=== PATIENT | male | born 1950 | race African-American/Black ===

== ENCOUNTER 2020-05-26 08:31 | Day surgery (SDC) | payer OTHER ==
--- OUTSIDE RECORDS SUMMARY | 2020-05-26 08:35 | XMS REPORT | Clinical Summary ---
:1950 Author Organization [facility] Address [address] [place] [address] Care Team Providers Name Role Phone Selena Lei MD Primary Care Provider Allergies No Known Active Allergies Medications Medication Sig Dispensed Refills Start Date End Date Status magnesium Take 400 mg by 0 Activ e oxide,aspartate,c mouth 2 (two) itr 400 mg times a day. magnesium capsule turmeric root Take 1 capsule 0 A ctive extract 500 mg by mouth 2 capsule (two) times a day. meloxicam (MOBIC) TAKE 1 TABLET 90 tablet 0 06/17/2019 Active 15 mg tablet BY MOUTH DAILY WITH FOOD NEEDED valACYclovir Take 1 tablet 30 tablet 0 10/25/2019 Ac tive (Valtrex) 500 MG (500 mg total) tabletIndications by mouth 2 : Recurrent (two) times a herpes simplex day. Take for 3 days prn outbreaks cholecalciferol, Take 1 tablet 0 Active vitamin D3, by mouth (Vitamin D3) 125 daily. mcg (5,000 unit) tablet ferrous sulfate Take 325 mg by 0 Active 325 (65 FE) MG mouth daily tablet with breakfast. multivit-min/FA/l Take 1 tablet 0 Active ycopen/lutein by mouth (CENTRUM SILVER daily. MEN ORAL) cyanocobalamin, Take 1 tablet 0 Active vitamin B-12, by mouth (VITAMIN B-12 daily. ORAL) TESTOSTERONE Take 4 tablets 0 Ac tive UNDECANOATE ORAL by mouth 2 (two) times a week. rosuvastatin TAKE 1 30 tablet 10 02/08/2020 Active (CRESTOR) 10 mg TABLET(10 MG) tablet BY MOUTH DAILY olmesartan-amLODI Take 1 tablet 30 tablet 3 04/19/2020 Active Pin-hcthiazid by mouth 40-5-25 mg daily. tabletIndications : Essential hypertension losartan (COZAAR) Take 1 tablet 90 tablet 0 05/04/2019 02 Discontinued 100 MG tablet (100 mg total) 0 by mouth daily. aspirin (ECOTRIN) Take 81 mg by 0 12/30/19 2 Discontinued 81 MG enteric mouth nightly. 0 ( Reorder) coated tablet meloxicam (MOBIC) Take one 30 tablet 1 06/17/2019 D iscontinued 15 mg tablet tablet by 0 mouth daily as needed with food. losartan (COZAAR) TAKE 1 90 tablet 0 07/26/2019 D iscontinued 100 MG tablet TABLET(100 MG) 0 BY MOUTH DAILY losartan (COZAAR) TAKE 1 90 tablet 0 10/07/2019 D iscontinued 100 MG tablet TABLET(100 MG) 0 BY MOUTH DAILY rosuvastatin Take 1 tablet 30 tablet 3 10/27/2019 Di scontinued (Crestor) 10 mg (10 mg total) 0 tablet by mouth daily. ticagrelor Take 1 tablet 180 tablet 3 12/30/2019 Exp ired (BRILINTA) 90 mg (90 mg total) 0 tablet by mouth 2 (two) times a day for 90 days. aspirin (ECOTRIN) Take 1 tablet 90 tablet 3 12/30/2019 02 81 MG enteric (81 mg total) 0 coated tablet by mouth nightly for 90 doses. losartan (COZAAR) TAKE 1 90 tablet 0 01/12/2020 D iscontinued 100 MG tablet TABLET(100 MG) 0 ( Dose BY MOUTH DAILY adjus tment) losartan-hydrochl Take 1 tablet 30 tablet 3 01/18/2020 02 Discontinued orothiazide by mouth 0 (Dose (HYZAAR) 100-25 daily. adju stment) mg per tabletIndications : Essential hypertension Active Problems Problem Noted Date History of coronary artery stent placement 12/14/2019 Stented coronary artery 06/08/2019 Abnormal stress test 05/04/2019 Hyperlipidemia 05/04/2019 Essential hypertension 05/04/2019 CAD in [place] artery 05/04/2019 SOB (shortness of breath) 05/04/2019 Encounters Date Type Specialty Care Team Description 05/24/2020 Telephone Cardiology Jaspal Ramírez MA Medication Que stion (Brilinta&Aspir in ) 04/19/2020 Office Visit Family Medicine Quique, Essential hy pertension Nadine (Primary Dx) MD Selena 04/19/2020 Travel 02/08/2020 Refill Family Nadine Gaming MD 01/18/2020 Office Visit Cardiology Sergio Vale, CAD in jethro ve artery (Primary Dx); Stented coronar y artery 01/18/2020 Lab Lab [facility], Prostate cancer screening; Nadine Essential hyper tension; MD Selena Left leg parest hesias; Impaired fastin g glucose; Vitamin D defic iency 01/18/2020 Office Visit Family Medicine Quique, Annual visit for general adult medical examination with abnormal findings (Primary Dx); Nadine Prostate cancer screening; MD Selena Essential hyper tension; Coronary artery disease involving e[place] coronary artery of [place] heart without angina pectoris; Recurrent herpe s simplex; Pure hyperchole sterolemia; Left leg parest hesias; Impaired fastin g glucose; Vitamin D defic iency 01/18/2020 Travel 01/11/2020 Refill Cardiology Sergio Vale, Med Refill 12/29/2019 Surgery Procedural Sergio Vale, PCI stent [ [id number] Cardiology (CPT)] 12/29/2019 - Hospital Cardiology Sergio Vale, CAD in jeth[place] ve artery 12/30/2019 Encounter 12/29/2019 Travel 12/28/2019 Travel 12/25/2019 Lab Lab Sergio Vale, Exposure to SARS-associated coronavirus; CAD in [place] a rtery; Hyperlipidemia, unspecified hyperlipidemia type 12/24/2019 Travel 12/14/2019 Office Visit Cardiology Sergio Vale, CAD in jethro ve artery (Primary Dx); History of charles nary artery stent placement; Pure hyperchole sterolemia; Exposure to WILFREDO S-associated coronavirus 12/14/2019 Orders Only Cardiology Jaspal Ramírez MA CAD in [place] artery (Primary Dx) 12/14/2019 Travel 10/27/2019 Refill Family Medicine Nadine Lei MD 10/25/2019 Office Visit Family Medicine [facility] Essential hy pertension (Primary Dx); Nadine Coronary artery disease involving ekl[place]na coronary artery of [place] heart without angina pectoris; MD Selena Recurrent herpe s simplex 10/25/2019 Travel 10/21/2019 Travel 10/07/2019 Refill Cardiology Sergio Vale Med Refill 07/23/2019 Refill Cardiology Sergio Vale Med Refill 06/17/2019 Refill Family Medicine Nadine Lei MD 06/17/2019 Refill Family Medicine Nadine Lei MD 06/15/2019 Office Visit Family Medicine [facility], Pain of both Nadine sacroiliac join ts MD Selena (Primary Dx) 06/08/2019 Office Visit Cardiology Sergio Vale, CAD in jethro ve artery (Primary Dx); Hyperlipidemia, unspecified hyperlipidemia type; Stented coronar y artery after 05/26/2019 Immunizations Name Administration Dates Next Due FLUZONE HIGH-DOSE PF 03/09/2020 Pneumococcal Conjugate 13-Valent 08/18/2018 Pneumococcal Polysaccharide 03/09/2020 Tdap 08/18/2018 Zoster Vaccine Recombinant 10/21/2018, 08/18/2018 Surgical History Surgery Date Site/Laterality Comments CARDIAC CATHETERIZATION 05/06/2019 N/A Procedur e: Selective coronary angiogr aphy; Surgeon: Lizy Vale MD; Locatio n: [facility] Legal Nurse Consultant [facility] Location; Servi ce: Cardiology; Lat erality: N/A; CORONARY STENT PLACEMENT 05/19/2003 - Dr Vale 05/18/2004 CARDIAC CATHETERIZATION 12/29/2019 N/A Procedur e: PCI stent; Surgeon: Lizy Vale MD; Locatio n: 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 Never 05/06/2019 How many drinks containing alcohol do you have on a typical Not asked day when you are drinking? How often do you have six or more drinks on one occasion? No t asked Sex Assigned at Date Recorded Not on file Job Start Date Occupation Industry Not on file Not on file Not on file Last Filed Vital Signs Vital Sign Reading Time Taken Comments Blood Pressure 133/90 04/19/2020 8:06 AM FRUIT CUTTER Pulse 63 04/19/2020 8:06 AM FRUIT CUTTER Temperature 36.7 C (98.1 F) 04/19/2020 8:06 AM FRUIT CUTTER Respiratory Rate 17 12/30/2019 7:00 AM CDT Oxygen Saturation 99% 04/19/2020 8:06 AM FRUIT CUTTER Inhaled Oxygen Concentration - - Weight 91.6 kg (202 lb) 04/19/2020 8:06 AM FRUIT CUTTER Height 172.7 cm (5' 8") 04/19/2020 8:06 AM FRUIT CUTTER Body Mass Index 30.71 04/19/2020 8:06 AM FRUIT CUTTER Plan of Treatment Date Type Specialty Care Team Description 07/18/2020 Office Visit Family Medicine Anay Lei MD [address] [facility] [address] [place], [place] [address] [phone] 07/18/2020 Office Visit Cardiology Sergio Vale MD [address] [facility] [address] [place], [place] [address] [phone] Health Maintenance Due Date Last Done Comments COVID-19 VACCINE (#1) 1968 COLONOSCOPY SCREENING 2002 SHINGLES VACCINES Completed 10/21/2018, 08/18/2018 65+ PNEUMOCOCCAL VACCINE Completed 03/09/2020, 08/18/2018 INFLUENZA VACCINE Completed 03/09/2020 Implants Implanted Type Area Precision Grinder External Device Shelf Model / Identifier Expiration Serial / Date Lot Stent System 3.0 X 38mm Resolute [employer] Coronary - [id number] Coronary N/A: N/A [facility] - [id number] / Implanted: 12/29/2019 at [facility] (Quantity not on file) Terry nts CARDIAC RYHTYM / MGMT Stent System 3.0 X 38mm Resolute [employer] Coronary - [id number] Coronary N/A: N/A [employer] [place] - [id number] / Implanted: 12/29/2019 at [facility] (Quantity not on file) Terry nts CARDIAC RYHTYM / MGMT Stent System 2.50 X 26mm Resolute [employer] Coronary - [id number] Coronary N/A: N/A [employer] [place] - [id number] / Implanted: 12/29/2019 at [facility] (Quantity not on file) Terry nts CARDIAC RYHTYM / MGMT System Clsr Sut Meditd 6fr Perclose Proglide - [id number] Surgic al N/A: N/A [facility] 09/15/2021 [id number] / Implanted: 12/29/2019 at [facility] (Quantity not on file) Implan ts; DEVICES / Expanders; [id number] Extenders; Surgical Wires System Clsr Sut Meditd 6fr Perclose Proglide - [id number] Surgic al N/A: N/A [facility] 09/15/2021 [id number] / Implanted: 12/29/2019 at [facility] (Quantity not on file) Implan ts; DEVICES / Expanders; [id number] Extenders; Surgical Wires Procedures Procedure Name Priority Date/Time Associated Diagnosis Comme nts VITAMIN D 25 HYDROXY Routine 01/18/2020 9:23 Vitamin D defici ency Results for this LEVEL AM CDT procedure are i n the results section. BASIC METABOLIC PANEL Routine 01/18/2020 9:23 Essential Re sults for this AM CDT hypertension procedure are in Impaired fasting the results glucose section. HEMOGLOBIN A1C Routine 01/18/2020 9:23 Impaired fasting Resul ts for this AM CDT glucose procedure are i n the results section. THYROID STIMULATING Routine 01/18/2020 9:23 Left leg paresthe stephanie Results for this HORMONE AM CDT procedure are i n the results section. VITAMIN B12 LEVEL Routine 01/18/2020 9:23 Left leg paresthesi as Results for this AM CDT procedure are i n the results section. C-REACTIVE PROTEIN Routine 01/18/2020 9:23 Left leg paresthes ias Results for this AM CDT procedure are i n the results section. SEDIMENTATION RATE Routine 01/18/2020 9:23 Left leg paresthes ias Results for this AM CDT procedure are i n the results section. URINALYSIS, AUTOMATED Routine 01/18/2020 9:23 Essential Re sults for this WITH MICROSCOPY AM CDT hypertension procedure ar e in the results section. PROSTATE SPECIFIC Routine 01/18/2020 9:23 Prostate cancer Res ults for this ANTIGEN AM CDT screening procedure are i n the results section. CBC HEMOGRAM Routine 12/30/2019 5:12 Results for this AM CDT procedure are i n the results section. ECG 12-LEAD Routine 12/30/2019 4:52 Results for this AM CDT procedure are i n the results section. ESTIMATED GFR Routine 12/30/2019 4:00 Results fo r this AM CDT procedure are i n the results section. BASIC METABOLIC PANEL Routine 12/30/2019 4:00 Re sults for this AM CDT procedure are i n the results section. ACTIVATED CLOTTING Routine 12/29/2019 1:38 Resul ts for this TIME PM CDT procedure are i n the results section. ECG 12-LEAD STAT 12/29/2019 1:15 Results for this PM CDT procedure are i n the results section. CV PCI STENT Routine 12/29/2019 12:16 CAD in [place] artery Res ults for this PM CDT procedure are i n the results section. ACTIVATED CLOTTING Routine 12/29/2019 11:43 Resul ts for this TIME AM CDT procedure are i n the results section. ACTIVATED CLOTTING Routine 12/29/2019 11:41 Resul ts for this TIME AM CDT procedure are i n the results section. ACTIVATED CLOTTING Routine 12/29/2019 11:24 Resul ts for this TIME AM CDT procedure are i n the results section. ACTIVATED CLOTTING Routine 12/29/2019 11:22 Resul ts for this TIME AM CDT procedure are i n the results section. ACTIVATED CLOTTING Routine 12/29/2019 11:16 Resul ts for this TIME AM CDT procedure are i n the results section. ACTIVATED CLOTTING Routine 12/29/2019 11:13 Resul ts for this TIME AM CDT procedure are i n the results section. ACTIVATED CLOTTING Routine 12/29/2019 10:42 Resul ts for this TIME AM CDT procedure are i n the results section. ACTIVATED CLOTTING Routine 12/29/2019 10:40 Resul ts for this TIME AM CDT procedure are i n the results section. ECG PRE/POST OP STAT 12/29/2019 7:28 Results for this AM CDT procedure are i n the results section. COVID-19 QUALITATIVE Routine 12/24/2019 11:45 Exposure to Res ults for this PCR AM CDT SARS-associated procedure ar e in coronavirus the results section. AST (SGOT) Routine 12/24/2019 9:57 CAD in [place] a rtery Results for this AM CDT Hyperlipidemia, procedure ar e in unspecified the results hyperlipidemia type section. LIPID PANEL Routine 12/24/2019 9:57 CAD in e[place] a rtery Results for this AM CDT Hyperlipidemia, procedure ar e in unspecified the results hyperlipidemia type section. COPY RECEIVED FROM: Routine 12/24/2019 7:02 Resu lts for this AM CDT procedure are i n the results section. PROTHROMBIN TIME WITH Routine 12/24/2019 7:02 Re sults for this INR AM CDT procedure are i n the results section. PARTIAL THROMBOPLASTIN Routine 12/24/2019 7:02 R esults for this TIME (PTT) AM CDT procedure are i n the results section. COPY(IES) SENT TO: Routine 12/24/2019 7:02 Resul ts for this AM CDT procedure are i n the results section. COMPREHENSIVE Routine 12/24/2019 7:02 CAD in [place] a rtery Results for this METABOLIC PANEL AM CDT History of coronary proce dure are in artery stent the results placement section. PT AND PTT Routine 12/24/2019 7:02 CAD in [place] a rtery Results for this AM CDT History of coronary procedur e are in artery stent the results placement section. CBC WITH PLATELET AND Routine 12/24/2019 7:02 CAD in na tive artery Results for this DIFFERENTIAL AM CDT History of coronary procedur e are in artery stent the results placement section. HSV 1 AND 2 SPECIFIC Routine 10/26/2019 7:05 Recurrent herpes Results for this AB IGG AM CDT simplex procedure are i n the results section. LIPID PANEL Routine 10/26/2019 7:04 Essential Results for this AM CDT hypertension procedure are in Coronary artery the results disease involving section. ekl[place]na coronary artery of [place] heart without angina pectoris XR SACROILIAC JOINTS Routine 06/15/2019 3:50 Pain of both Res ults for this 3+ VW PM FRUIT CUTTER sacroiliac joints procedure are in the results section. after 05/26/2019 Results Vitamin D 25 hydroxy level (01/18/2020 9:23 AM CDT) Vitamin D, 59 30 - 100 [facility] 25-hydroxy Comment: ng/mL [place] Vitamin D Status 25-OH Vitamin D: Deficiency: <20 ng/mL Insufficiency: 20 - 29 ng/mL Optimal: > or = 30 ng/mL For 25-OH Vitamin D testing on patients on D2-supplementation and patients for whom quantitation of D2 and D3 fractions is required, the [facility](T M) 25-OH VIT D, (D2,D3), LC/MS/MS is recommended: order code 63377 (patients >2yrs). See Note 1 Note 1 For additional information, please refer to http://education.CookBrite/faq/LYJ958 (This link is being provided for informational/ educational purposes only.) Specimen Blood Resulting Agency Comment Performing Organization Information: Site ID: [email or web address] Name: [facility] Address: [address] [place] [phone] Director: Devyn Reynolds Performing Organization Address City/State/ZIP Code Phon e Number [facility] [place] [phone] Urinalysis, automated with microscopy (01/18/2020 9:23 AM CDT) Color, UA YELLOW YELLOW [facility] [place] Appearance CLOUDY (A) CLEAR [facility] [place] Specific gravity, 1.021 1.001 - 1.035 [facility] urine [place] pH, urine > OR = 8.5 (A) 5.0 - 8.0 [facility] [place] Glucose, urine NEGATIVE NEGATIVE [facility] [place] Bilirubin, UA NEGATIVE NEGATIVE [facility] [place] Ketones, UA NEGATIVE NEGATIVE [facility] [place] Occult blood, NEGATIVE NEGATIVE [facility] urine [place] Protein, UA NEGATIVE NEGATIVE [facility] [place] Nitrite, UA NEGATIVE NEGATIVE [facility] [place] Leukocyte NEGATIVE NEGATIVE [facility] esterase, UA [place] WBC, UA NONE SEEN < OR = 5 /HPF [facility] [place] RBC, UA NONE SEEN < OR = 2 /HPF [facility] [place] Squamous NONE SEEN < OR = 5 /HPF [facility] epithelial cells, [place] UA Bacteria, UA NONE SEEN NONE SEEN /HPF [facility] [place] Hyaline casts, UA NONE SEEN NONE SEEN /LPF [facility] [place] Specimen Blood Resulting Agency Comment Performing Organization Information: Site ID: [email or web address] Name: [email or web address] Address: [address] [place] [phone] Director: Devyn Reynolds Performing Organization Address City/[facility] Phon e Number [facility] [place] [address] [place] [phone] Sedimentation rate (01/18/2020 9:23 AM CDT) Pathologist Sig nature Sedimentation rate 11 < OR = 20 mm/h [facility] [place] Specimen Blood Resulting Agency Comment Performing Organization Information: Site ID: [email or web address] Name: [email or web address] Address: [address] [place] [phone] Director: Devyn Reynolds Performing Organization Address City/[facility] Phon e Number [facility] [address] [address] C-reactive protein (01/18/2020 9:23 AM CDT) Pathologist Sig nature CRP 2.7 <8.0 mg/L [facility] [place] Specimen Blood Resulting Agency Comment Performing Organization Information: Site ID: [email or web address] Name: [email or web address] Address: [address] [place] [phone] Director: Deyvn Reynolds Performing Organization Address [facility] Phon e Number [facility] [place] [address] [place] [phone] Thyroid stimulating hormone (01/18/2020 9:23 AM CDT) Pathologist Sig nature TSH 1.12 0.40 - 4.50 mIU/L [facility] ON Specimen Blood Resulting Agency Comment Performing Organization Information: Site ID: [email or web address] Name: [facility] Address: [address] [place] [phone] Director: Devyn Reynodls Performing Organization Address City/[facility] Phon e Number [facility] [address] [phone] Prostate specific antigen (01/18/2020 9:23 AM CDT) PSA 1.7 < OR = 4.0 [facility] Comment: ng/mL [place] The total PSA value from this assay system is standardized against the WHO standard. The test result will be approximately 20% lower when compared to the equimolar-standardized total PSA (Roger Oanh). Comparison of serial PSA results should be interpreted with this fact in mind. This test was performed using the Siemens chemiluminescent method. Values obtained from different assay methods cannot be used interchangeably. PSA levels, regardless of value, should not be interpreted as absolute evidence of the presence or absence of disease. Specimen Blood Resulting Agency Comment Performing Organization Information: Site ID: [email or web address] [facility]: [facility] Address: [address] [place] [phone] Director: Devyn Reynolds Performing Organization Address City/State/[facility] Phon e Number [facility] [place] [phone] Hemoglobin A1c (01/18/2020 9:23 AM CDT) Hemoglobin A1C 5.2 <5.7 % of [facility] Comment: total Hgb [place] For the purpose of screening for the presence of diabetes: <5.7% Consistent with the absence of diabetes 5.7-6.4% Consistent with increased risk for diabe lin (prediabetes) > or =6.5% Consistent with diabetes This assay result is consistent with a decreased risk of diabetes. Currently, no consensus exists regarding use of hemoglobin A1c for diagnosis of diabetes in children. According to [place] Diabetes Association (ADA) guidelines, hemoglobin A1c <7.0% represents optimal control in non- diabetic patients. Different metrics may apply to specific patient populations. Standards of Medical Care in Diabetes(ADA). Specimen Blood Resulting Agency Comment Performing Organization Information: Site ID: [email or web address] Name: [facility] Address: [address] [place] [phone] Director: Devyn Reynolds Performing Organization Address City/State/[facility] Phon e Number [facility] [place] [address] [place] [phone] Vitamin B12 level (01/18/2020 9:23 AM CDT) Pathologist Sig nature Vitamin B12 1,184 (H) 200 - 1,100 pg/mL [facility] [place] Specimen Blood Resulting Agency Comment Performing Organization Information: Site ID: [email or web address] Name: [email or web address] Address: [address] [place] [phone] Director: Devyn Reynolds Performing Organization Address [facility] Phon e Number [facility] [phone] Basic metabolic panel (01/18/2020 9:23 AM CDT)Only the most recent of2 results within the time period is included. [facility] Glucose 93 65 - 99 [facility] Comment: mg/dL [place] Fasting reference interval BUN 12 7 - 25 mg/dL [facility] [place] Creatinine 1.12 0.70 - 1.25 [facility] Comment: mg/dL [place] For patients >49 years of age, the reference limit for Creatinine is approximately 13% higher for people identified as -Malian. EGFR Non-Afr. 68 > OR = 60 [facility] Malian mL/min/1.73m [place] 2 EGFR 78 > OR = 60 [facility] Malian mL/min/1.73m [place] 2 BUN/creatinine NOT APPLICABLE 6 - 22 [facility] ratio (calc) [place] Sodium 142 135 - 146 [facility] mmol/L [place] Potassium 4.9 3.5 - 5.3 [facility] mmol/L [place] Chloride 104 98 - 110 [facility] mmol/L [place] CO2 30 20 - 32 [facility] mmol/L [place] Calcium 10.4 (H) 8.6 - 10.3 [facility] mg/dL [place] Specimen Blood Resulting Agency Comment Performing Organization Information: Site ID: A Name: [email or web address] Address: [address] [place] [phone] Director: Devyn Reynolds Performing Organization Address City/State/ZIP [facility] Phon e Number [facility] [place] [address] [place] [phone] CBC hemogram (12/30/2019 5:12 AM CDT) Pathologist [facility] brant WBC 6.30 4.50 - 11.00 k/uL [facility] RBC 4.16 (L) 4.40 - 6.00 m/uL [facility] HGB 13.6 (L) 14.0 - 18.0 g/dL [facility] HCT 39.4 (L) 41.0 - 51.0 % [facility] MCV 94.7 82.0 - 100.0 fL [facility] MCH 32.7 27.0 - 34.0 pg [facility] MCHC 34.5 31.0 - 37.0 g/dL [facility] RDW - SD 45.0 37.0 - 55.0 fL [facility] MPV 11.0 8.8 - 13.2 fL [facility] Platelet count 170 150 - 400 k/uL [facility] Nucleated RBC 0.00 /100 WBC [facility] Specimen Blood Performing Organization Address [facility] Phon e Number [facility] DEPARTMENT OF PATHOLOGY AND [address] [place], [place] [address] GENOMIC MEDICINE [facility] [address] [place] [address] ECG 12 lead (12/30/2019 4:52 AM CDT)Only the most recent of2 resultswithin the time period is included. Pathologist Sig nature Ventricular rate 55 [facility]USE Atrial rate 55 [facility] MUSE IL interval 180 [facility] QRSD interval 76 [facility] QT interval 458 [facility] M[facility] QTC interval 438 [facility] M[facility] P axis 1 -21 [facility] QRS axis 1 -3 [facility] M[facility] T wave axis 1 [facility] M[facility] EKG impression Sinus [facility] MUSE bradycardia-Nonspecific T wave abnormality-Abnormal ECG-In automated comparison with ECG of 29-DEC-2019 13:15,-No significant change was found- Specimen Narrative Performed At This result has an attachment that is no t available. Performing Organization Address [facility] Phon e Number [facility] MUSE [address] [place] [address] Estimated GFR (12/30/2019 4:00 AM CDT) Estimated GFR 75 mL/min/1.73 [facility] Comment: m2 HOSPITAL Catergory Units Interpretation G1 >=90 Normal or high G2 60-89 Mildly decreased G3a 45-59 Mildly to moderately decreas ed G3b 30-44 Moderately to severely decre ased G4 15-29 Severely decreased G5 <15 Kidney failure The eGFR was calculated using the Chronic Kidney Disea se Epidemiology Collaboration (CKD-EPI) equation. Interpretation is based on recommendations of the National Kidney Foundation-Kidney Disease Outcomes Pee lity Initiative (NKF-KDOQI) published in 2014. Specimen Performing Organization Address City/[facility] Code Phon e Number [facility] DEPARTMENT OF PATHOLOGY AND [address] [place] [address] [address] Activated clotting time (12/29/2019 1:38 PM CDT)Only the most recent of9 resultswithin the time period is included. 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 PROCEDURE DETAILS [facility] Attending: Dr. Sergio Vale MD Interventional Fellow: Alverto Mejia MD EQUIPMENT/ANTICOAGULATION: Bilateral femoral ORTHOTIC AND PROSTHETIC TECHNICIAN 7Fr RIGHT; 6 Fr LEFT ORTHOTIC AND PROSTHETIC TECHNICIAN; 4 Fr LEFT common femoral vei n AL .75 SH; XB3.5 Guide Catheter Thelma Blue coronary wire Anticoagulation: Heparin with ACT >250 sec prior to procedure The RCA was engaged with the AL .75 SH Guide Cathete r. The LMT was engaged with the XB 3.5 Guide Catheter. Bilateral an giography was performed. We then introduced Filder XT coronary wire over the Corsair microcatheter to the RCA. The SHIPPING SUPPORT CLERK lesions in the proxi mal and mid RCA were crossed by the Fielder XT wire. Wire freely moved to t he PDA. Wire was exchanged over the Corsair catheter to a SionBlue long wire. Lesions in the prox-distal RCA were serially dilated u sing 1.5, 2.0 and 2.5 compliant balloons at low pressures. We then stented mid-distal RCA using 3.0x38 mm Resolut e Badger URBAN. Then we stented proximal RCA using additional 3.0x38 mm Resolu te Renard URBAN. Angiography after the stent deployment revealed small proximal PDA dissection. The area of the dissection was additionall y dilated using 2.0 balloon and stented with 2.5x26 mm Resolute Badger stent . Final angiography revealed evidence of small dissectio n in the mid PDA, however there was CHRISTINA 3 flow to the most distal branc h and no evidence of extravasation or contrast staining. At this point deci thelma was made to terminate the procedure. HEMOSTASIS: Proglide Closure Device bilaterally. PLAN: 1. ASA 81mg daily 2. Ticagrelor 90mg BID . 3. Cardiac medical therapy and aggressive risk factor modification. Cardiac rehabilitation. 4. Transferred in stable condition ANESTHESIA Under my supervision, 3 mg of versed and 50 mcg of fen tanyl were administered intravenously for moderate sedation. Pulse oxymetry, heart rate and blood pressure were con tinuously measured by an independent trained observer present. I spent 120 minutes of face to face attendance with th e patient during sedation. Performing Organization Address City/[facility] Code Phon e Number [facility] [address] [place] [address], ECG Pre/Post Op (12/29/2019 7:28 AM CDT) Pathologist Sig nature Ventricular rate 47 [facility] MUSE Atrial rate 47 [facility] MUSE IL interval 190 [facility] MUSE QRSD interval 76 [facility] MUSE QT interval 472 [facility] MUSE QTC interval 417 [facility] MUSE P axis 1 -27 [facility] MUSE QRS axis 1 -13 [facility] MUSE T wave axis -24 [facility] EKG impression Sinus bradycardia with sinus arrhythmia-Nonspecific T wave abnormality-Abnormal ECG-In automated comparison with ECG of 06-MAY-2019 11:35,- Sinus rhythm has replaced Ectopic atrial rhythm-Nonspecific T wave abnormality now evident in Lateral [facility] MUSE leads- Specimen Narrative Performed At This result has an attachment that is no t available. Performing Organization Address [facility] Phon e Number [facility] MUSE [address] [place] [address] COVID-19 qualitative PCR (12/24/2019 11:45 AM CDT) Interpretation Negative results do not prec lude 2019-nCoV infection and should not be used as the sole basis for treatment or other patient management decisions. Negative results must be combined with clinical observations, patient history, and epidemiological [place] information. [facility] COVID-19 qualitative Not-Detected Not-Detecte [place] PCR result d [facility] COVID-19 qualitative See link below for [place] PCR PDF Lab [facility] ReportComment: Case HOSPITAL Number: [id number] Specimen Nasopharyngeal swab Performing Organization Address City/[facility] Phon e Number [facility] DEPARTMENT OF PATHOLOGY AND [address] [place], [place] [address] [address] [facility] AST (SGOT) (12/24/2019 9:57 AM CDT) Pathologist Sig nature AST 24 10 - 50 U/L [facility] Specimen Blood Performing Organization Address City/[facility] Phon e Number [facility] DEPARTMENT OF PATHOLOGY AND [address] [place], [place] [address] [address] [address] Lipid panel (12/24/2019 9:57 AM CDT)Only the most recent of2 resultswithin the time period is included. Cholesterol 131 <200 mg/dL [facility] Triglycerides 137 <150 mg/dL [facility] HDL cholesterol 47 >40 mg/dL [facility] LDL cholesterol 75Comment: Result <100 mg/dL [place] obtained by direct [facility] LDL measurement [facility] Lipid panel SeeBelow [place] interpretation Comment: [facility] Total Cholesterol (mg/dL) HOSPIT AL <200 Desirable 200-239 Borderline-high >=240 High Triglycerides (mg/dL) <150 Normal 150-199 Borderline-high 200-499 High >=500 Very high HDL Cholesterol (mg/dL) <40 Low (male) <40 Low (female) LDL Cholesterol (mg/dL) <100 Optimal 100-129 Near or above optimal 130-159 Borderline-high 160-189 High >=190 Very high Risk Catergories that modify LDL goals. Risk Catergories LDL goal (mg/d L) CHD and CHD risk equivalent <100 (10-year risk >20%) Multiple (2+) risk factors <130 (10-year risk =<20%) 0-1 risk factors <160 (<10-year risk) Defining levels of lipids in metabolic syndrome Triglycerides >=150 mg/dL HDL Cholesterol Men <40 mg /dL Women <40 mg/ dL Non-HDL cholesterol is a second target for therapy in persons with high triglycerides (>=200 mg/dL) Specimen Blood Performing Organization Address City/[facility]/ZIP Code Phon e Number [facility] DEPARTMENT OF PATHOLOGY AND [address] [place], [place] [address] GENOMIC MEDICINE [facility] [address] [place] [address] COPY RECEIVED FROM: (12/24/2019 7:02 AM CDT) Pathologist Sig nature Copy received from: [facility] Comment: [address] [place] [address] Specimen Narrative Performed At FASTING:YES [facility] FASTING: YES Performing Organization Address City/[facility] Code Phon e Number [facility] COPY(IES) SENT TO: (12/24/2019 7:02 AM CDT) Pathologist Sig nature Copies/mL [facility] Comment: ANJALI [address] [facility] [address] [place] [address] Specimen Narrative Performed At FASTING:YES [facility] FASTING: YES Performing Organization Address [facility] Phon e Number [facility] PT and PTT (12/24/2019 7:02 AM CDT) PTT 26 22 - 34 sec [facility] Comment: [place] This test has not been validated for monitoring unfractionated heparin therapy. For testing that is validated for this type of therapy, please refer to the Heparin Anti-Xa assay (test code 48994). For additional information, please refer to http://education.Stockpulse.Buy Auto [employer]/faq/FFA716 (This link is being provided for informational/educational purposes only.) INR 1.0 [facility] Comment: [place] Reference Range 0.9-1.1 Moderate-intensity Warfarin Therapy 2.0-3.0 Higher-intensity Warfarin Therapy 3.0-4.0 Prothrombin time 10.4 9.0 - 11.5 [facility] sec [place] Specimen Blood Narrative Performed At FASTING:YES [facility] FASTING: YES Resulting Agency Comment Performing Organization Information: Site ID: [id number] Name: [facility] Address: [address] [place] [phone] Director: Devyn Reynolds Performing Organization Address [facility] Phon e Number [facility] [address] [address] Partial thromboplastin time, activated (12/24/2019 7:02 AM CDT) PTT 26 22 - 34 sec [facility] Comment: [place] This test has not been validated for monitoring unfractionated heparin therapy. For testing that is validated for this type of therapy, please refer to the Heparin Anti-Xa assay (test code 49209). For additional information, please refer to http://education.CookBrite/faq/HBB996 (This link is being provided for informational/educational purposes only.) Specimen Narrative Performed At FASTING:YES [facility] FASTING: YES Resulting Agency Comment Performing Organization Information: Site ID: [facility] Name: [facility] Address: [address] [place] [phone] Director: Devyn Reynolds Performing Organization Address [facility] Phon e Number [facility] [place] [address] Prothrombin time with INR (12/24/2019 7:02 AM CDT) INR 1.0 [facility] Comment: [place] Reference Range 0.9-1.1 Moderate-intensity Warfarin Therapy 2.0-3.0 Higher-intensity Warfarin Therapy 3.0-4.0 Prothrombin time 10.4 9.0 - 11.5 [facility] sec [place] Specimen Narrative Performed At FASTING:YES [facility] FASTING: YES Resulting Agency Comment Performing Organization Information: Site ID: [facility] Name: [facility] Address: [address] [place] [phone] Director: Devyn Reynolds Performing Organization Address [facility] Phon e Number [facility] [place] [address] CBC with platelet and differential (12/24/2019 7:02 AM CDT) Pathologist Sig nature WBC 4.9 3.8 - 10.8 [facility] Thousand/uL [place] RBC 4.63 4.20 - 5.80 [facility] Million/uL [place] HGB 14.7 13.2 - 17.1 [facility] g/dL [place] HCT 43.9 38.5 - 50.0 % [facility] [place] MCV 94.8 80.0 - 100.0 fL [facility] [place] MCH 31.7 27.0 - 33.0 pg [facility] [place] MCHC 33.5 32.0 - 36.0 [facility] g/dL [place] RDW 13.3 11.0 - 15.0 % [facility] [place] Platelet count 187 140 - 400 [facility] Thousand/uL [place] MPV 11.6 7.5 - 12.5 fL [facility] [place] Neutrophils, absolute 2,146 1,500 - 7,800 [facility] cells/uL [place] Lymphocytes, absolute 2,190 850 - 3,900 [facility] cells/uL [place] Monocytes, absolute 397 200 - 950 [facility] cells/uL [place] Eosinophils, absolute 118 15 - 500 [facility] cells/uL [place] Basophils, absolute 49 0 - 200 [facility] cells/uL [place] Neutrophils 43.8 % [facility] [place] Lymphocytes 44.7 % [facility] [place] Monocytes 8.1 % [facility] [place] Eosinophils 2.4 % [facility] [place] Basophils + RC 1.0 % [facility] [place] Specimen Blood Narrative Performed At FASTING:YES [facility] FASTING: YES Resulting Agency Comment Performing Organization Information: Site ID: [id number]: [facility] Address: [address] [place] [phone] Director: Devyn Reynolds Performing Organization Address City/State/ZIP Code Phon e Number [facility] [place] [id number] Comprehensive metabolic panel (12/24/2019 7:02 AM CDT) [facility] Glucose 105 (H) 65 - 99 [facility] Comment: mg/dL [place] Fasting reference interval For someone without known diabetes, a glucose value between 100 and 125 mg/dL is consistent with prediabetes and should be confirmed with a follow-up test. BUN 18 7 - 25 mg/dL [facility] [place] Creatinine 1.16 0.70 - 1.25 [facility] Comment: mg/dL [place] For patients >49 years of age, the reference limit for Creatinine is approximately 13% higher for people identified as -Malian. EGFR Non-Afr. 65 > OR = 60 [facility] Malian mL/min/1.73m [place] 2 EGFR 75 > OR = 60 [facility] [place] mL/min/1.73m [place] [id number] BUN/creatinine NOT APPLICABLE 6 - 22 [facility] ratio (calc) [place] Sodium 142 135 - 146 [facility] mmol/L [place] Potassium 4.5 3.5 - 5.3 [facility] mmol/L [place] Chloride 109 98 - 110 [facility] mmol/L [place] CO2 25 20 - 32 [facility] mmol/L [place] Calcium 9.2 8.6 - 10.3 [facility] mg/dL [place] Protein 6.9 6.1 - 8.1 [facility] g/dL [place] Albumin, S 4.2 3.6 - 5.1 [facility] g/dL [place] Globulin, total 2.7 1.9 - 3.7 [facility] g/dL (calc) [place] Albumin/globulin 1.6 1.0 - 2.5 [facility] ratio (calc) [place] Total bilirubin 1.4 (H) 0.2 - 1.2 [facility] mg/dL [place] Alkaline 78 35 - 144 U/L [facility] phosphatase [place] AST 21 10 - 35 U/L [facility] [place] ALT 15 9 - 46 U/L [facility] [place] Specimen Blood Narrative Performed At FASTING:YES [facility] FASTING: YES Resulting Agency Comment Performing Organization Information: Site ID: [id number]: [facility] Address: [address] [place] [phone] Director: Devyn Reynolds Performing Organization Address City/State/ZIP Code Phon e Number [facility] [address] [address] HSV 1 and 2 specific Ab IgG (10/26/2019 7:05 AM CDT) HSV 1 IgG 45.20 (H) index [facility] II HSV 2 IgG >23.00 (H) index [facility] Comment: [facility] Index Interpretation II ----- <0.90 Negative 0.90-1.09 Equivocal >1.09 Positive This assay utilizes recombinant type-specific antigens to differentiate HSV-1 from HSV-2 infections. A positive result cannot distinguish between recent and past infection. If recent HSV infection is suspected but the results are negative or equivocal, the assay should be repeated in 4-6 weeks. The performance characteristics of the assay have not been established for pediatric populations, immunocompromised patients, or screening. Specimen Blood Narrative Performed At FASTING:YES [facility] FASTING: YES Resulting Agency Comment Performing Organization Information: Site ID: [id number] Name: [facility] Address: [address] [place] [address] Director: Dr. Devyn hare Performing Organization Address City/State/ZIP Code Phon e Number [facility] [address] [facility]. 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 There is nonspecific prominent stool in the rectum. IMPRESSION: Degenerative changes of the sacroiliac j oints and lower lumbar region. Nonspecific prominent amount of stool in the rectum. 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 There is nonspecific prominent stool in the rectum. IMPRESSION: Degenerative changes of the sacroiliac j oints and lower lumbar region. Nonspecific prominent amount of stool in the rectum. 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
--- OUTSIDE RECORDS SUMMARY | 2020-05-26 08:35 | XMS REPORT | Continuity of Care Document ---
:1950 Author Organization [facility] Care Team Providers Name Role Phone [facility] Unavailable Un available Problems Problem Status Onset Classification Date Comments Sourc e Date Reported I10, I25.[address] [facility] Medications Medication Details Route Status Patient Ordering Order Source Instructions Provider Date azilsartan 2 tab, PO, Active [facility] medoxomil 40 MG / Daily, # 019 Medic al Chlorthalidone 30 tab, 3 Center 12.5 MG Oral Refill(s) Tablet [Edarbyclor 40/12.5] Nitroglycerin 0.4 mg, Inactive [facility] Route: , 019 [facility] ONCE, Center Dosing Weight 85.909, kg, Start date: 03/26/19 15:00:00 COMPUTER VIDEO GAME [employer], Stop date: 03/26/19 15:00:00 COMPUTER VIDEO GAME DES[employer]ER Allergies, Adverse Reactions, Alerts No Known Medication Allergies Immunizations No Data Provided for This Section Results No Data Provided for This Section Pathology Reports No Data Provided for This Section Diagnostic Reports Report Value Date Source Heart/coronary CORONARY CT ANGIOGRAPHY WITH CALCIUM SCORE REPOR T 03/26/2019 [facility] art/graft w contrast DATE PERFORMED: 03/26/2019 at 15:02 Center CTA QUALITY:Technically adequate COMPARISON: None available CLINICAL HISTORY: 68 year-old patient with hyp ertension here for evaluation of suspected coronary artery disease. TECHNIQUE: Using a [employer] 640 slice MDCT scanner, a preliminary plastic duplicator study was obtained, followed by coronary calcium protocol (Agatston units). Following intravenous admini stration of 60 of low osmolar contrast agent, 5 mm collimated images, with retrospective gating, were obtained through the coronary arteries. For optimal image acquisitio n, (0.4) mg of sublingual nitroglycerin was administered immediately prior to scanning. Total radiation dose administered: 1.7 mSv. Heart rate at the time of acquisition was approx imately 47-48 bpm. Data were transferred off-line to an independent workstation for: - 3D anatomic reconstruction s, including curved multiplanar reconstructions (MPR), maximum intensity projections (MIP), and multi-planar imaging. - 4D cine reconstructions fo r functional evaluation of cardiac valves and ventricular chambers. FINDINGS: Both ventricles normal in size. Both atria normal in size. Valves: no thickening or calcification. No intracardiac masses. No pericardial effusion, thickening, calcificati on or cysts. Aorta and branches: normal anatomy. Pulmonary artery and main branches: normal anato my. Pulmonary veins: normal insertion into the left atrium. Venae cavae: normal anatomy. CORONARY ARTERY CALCIUM SCORE: Total: 1968. Vessel Score Left Main Coronary Artery 0 Left Anterior Descending / Diagonals 502 Left Circumflex / Obtuse Marginals 1317 Right Coronary / PDA / NOHELIA 147 CORONARY ARTERY DESCRIPTIONS: The coronary arteries arise in normal position. Left main coronary artery: Normal caliber vessel that bifurcates into the LAD and LCx. LM is patent with no evidence of plaque or stenosis. Left anterior descending cor onary artery: Medium caliber vessel that gives off 2 diagonal branches. Diffuse areas of calcified plaque in the proximal segment and 2nd diagonal branch with limited luminal evaluation due to blooming artifact. Left circumflex coronary art kymberly: Nondominant artery that gives rise to 2 marginal branches. Diffuse areas of calcified plaque including the 1st and 2nd obtuse marginal branches, with limited luminal hailey luation due to blooming jono fact. The mid segment either demonstrates circumferential calcified plaque versus a small stent. Right Coronary artery: Small dominant artery that gives rise to the PDA branch. Scattered areas of dense atherosclerotic calcification, with limited evaluation of the lumen due to blooming artifact. Bypass grafts: None IMPRESSION: 1. Normal coronary anatomy with a right dominan t system. 2. Total Agatston calcium score of 1968 conside red severe/extensive. 3. CAD-RADS: N. Nondiagnost ic study due to severe blooming artifact from extensive calcified plaque in multiple coronary arterial segments. 4. Management recommendatio n: Alternative evaluation such as catheter angiogram for accurate coronary luminal evaluation in this high risk patient. Consultation Notes No Data Provided for This Section Discharge Summaries No Data Provided for This Section History and Physicals No Data Provided for This Section Vital Signs Vital Sign Value Date Comments Source Heart Rate 55 03/26/2019 [facility] Rate 15 03/26/2019 [facility] Systolic (mm Hg) 138 03/26/2019 [facility] Diastolic (mm Hg) 81 03/26/2019 [facility] ed[facility] [place] Systolic (mm Hg) 149 03/26/2019 [facility] Diastolic (mm Hg) 76 03/26/2019 [facility]2019 [facility] Rate 16 03/26/2019 [facility] Heart Rate 49 03/26/2019 [facility] [place] [facility] Rate 16 03/26/2019 [facility] Systolic (mm Hg) 146 03/26/2019 [facility] dical [place] Diastolic (mm Hg) 86 03/26/2019 [facility] Height 177.8 cm 03/26/2019 [facility] [place] Weight 85.909 03/26/2019 [facility] BMI Calculated 27.18 03/26/2019 [facility] Encounters Location Location Encounter Encounter Reason Attending ADM DC Stat us Source Details Type Number For Provider Date Date Visit [facility] Outpatient [id number] Bryce 03/26 03/27 [facility] S[place]iman [place] /2018 [facility] Procedures No Data Provided for This Section Assessment and Plan No Data Provided for This Section Plan of Care No Data Provided for This Section Social History Social History Date Source Social History TypeResponse 03/27/2019 [facility] Family History No Data Provided for This Section Advance Directives No Data Provided for This Section Functional Status No Data Provided for This Section
--- OUTSIDE RECORDS SUMMARY | 2020-05-26 08:36 | XMS REPORT | Continuity of Care Document ---
:1950 Author Organization [facility] t Address [address] [place] [address] Care Team Providers Name Role Phone Selena Lei MD Primary Care Physician Desiree LEONARDO Attending Clinician Unavailable Selena Lei MD Attending Clinician Maribel HOUSER, RCooper Attending Clinician Rachelle Leo Attending Clinician MARIBEL Admitting Clinician Unavailable Payers Payer Name Policy Type Policy Effective Date Expiration Date Sour ce Number HUMANA [id number] 2018 [place] MEDICAREHUMANA 00:00:00 [employer] MEDICARE PPO/PFFS/ERS [id number] 2018 -PresentPPO Problems Condition Condition Condition Status Onset Resolution Last Treating Co mments Source Name Details Category Date Date Treatment Clinician Date History of [facility] of [facility] - [facility] artery artery 00:00: st stent stent 00 placement placement Stented Stented Disease Active [place] coronary coronary 1- Method i artery artery 00:00: st 00 Abnormal Abnormal Disease Active 2018-05 [place] stress stress 2-17 Methodi test test 00:00: st 00 Hyperlipid Hyperlipid Disease Active 2018-05 H tiffanie emia emia 2-17 Methodi 00:00: st 00 Essential Essential Disease Active 2018-05 [place] hypertensi hypertensi 2-17 Me thodi on on 00:00: st 00 CAD in CAD in Disease Active 2018-05 [place] 2-17 Methodi artery artery 00:00: st 00 SOB SOB Disease Active 2018-05 [place] (shortness (shortness 2-17 Me thodi of breath) of breath) 00:00: st 00 I10, Diagnosis Active 2018-052019-03-26 Mem erlinda I25.118 05-26 14:35:00 l I10, 00:00: Suleiman I25.118 00 Active 03/26/2019 [facility] Allergies, Adverse Reactions, Alerts This patient has no known allergies or adverse reactions. Family History Family Member Diagnosis Comments Start Date Stop Date Source Natural father Hypertension [facility] Natural father Stroke [facility] thodist Natural mother Heart disease [facility] Natural mother Hypertension [facility] Social History Social Habit Start Date Stop Date Quantity Comments Source History [facility] Meth odist Alcohol Std Drinks History [facility] Meth odist Alcohol Binge Sex Assigned At [facility] ethodist Tobacco use and 2020-04-19 2020-04-[address] [facility] ethodist exposure 00:00:00 00:00:00 Alcohol intake 2020-04-19 2020-04-19 Lifetime [facility] thodist 00:00:00 00:00:00 non-drinker (finding) History SDOH 2019-05-06 2019-05-06 1 [place] Meth odist Alcohol Frequency 00:00:00 00:00:00 Smoking Status Start Date Stop Date Source Never smoker [facility] Medications Ordered Filled Start Stop Current Ordering Indication Dosage Frequency Signature Comments Components Source Medication Medication Date Date Medication? Clinician (SIG) Name Name magnesium 2019-05 Yes 400mg Q.5D Take 400 [address] ston oxide,aspar 2-02 mg by Methodi bravo,citr 08:09: mouth 2 st 400 mg 26 (two) magnesium times a capsule day. turmeric 2019-05 Yes 1{capsu Q.5D Take 1 [place] root 2-02 le} capsule by Methodi extract 500 08:09: mouth 2 st mg capsule 26 (two) times a day. cholecalcif 2019-05 Yes 1{tbl} QD Take 1 [place] sena, 2-02 tablet by Methodi vitamin D3, 08:09: mouth st (Vitamin 26 daily. D3) 125 mcg (5,000 unit) tablet ferrous 2019-05 Yes 325mg QD Take 325 [place] sulfate 325 2-02 mg by Methodi (65 FE) MG 08:09: mouth st tablet 26 daily with breakfast. multivit-mi 2020-1 Yes 1{tbl} QD Take 1 [place] baroneton n/FA/lycope 2-02 tablet by Met hodi n/lutein 08:09: mouth st (CENTRUM 26 daily. SILVER MEN ORAL) cyanocobala 2019-05 Yes 1{tbl} QD Take 1 [place] min, 2-02 tablet by Methodi vitamin 08:09: mouth st B-12, 26 daily. (VITAMIN B-12 ORAL) TESTOSTERON 2019-05 Yes 4{tbl} Q.5W Take 4 Ho comfort E 2-02 tablets by Methodi UNDECANOATE 08:09: mouth 2 st ORAL 26 (two) times a week. olmesartan- 2019-05 Yes Essential 1{tbl} QD Take 1 [place] amLODIPin-h - hypertensio tablet by Methodi cthiazid 00:00: n mouth st 40-5-25 mg 00 daily. tablet rosuvastati Yes TAKE 1 [place] (CRESTOR) - TABLET(10 Met hodi 10 mg 00:00: MG) BY st tablet 00 MOUTH DAILY losartan-hy 2020- No Essential 1{tbl} QD Take 1 [place] drochloroth 01-17 12- hypertensio tablet by Methodi iazide 00:00: 00:[address] (HYZAAR) 00 :00 daily. 100-25 mg per tablet losartan 2020- No TAKE 1 [place] (COZAAR) 01-11 TABLET(100 Meth ashish 100 MG 00:00: 00:00 MG) BY st tablet 00 :00 MOUTH DAILY aspirin 2019- No 81mg QD Take 81 mg Tg ston (ECOTRIN) 12-29 by mouth Metho di 81 MG 08:02: 00:[address] enteric 53 :00 coated tablet ticagrelor 2019- 2020- No 90mg Q.5D Take 1 [place] (BRILINTA) 12-29- tablet (90 Me thodi 90 mg 00:00: 23:59 mg total) st tablet 00 :00 by mouth 2 (two) times a day for 90 days. aspirin 2019-0 2020- No 81mg QD Take 1 [place] (ECOTRIN) 12-29- tablet (81 Met hodi 81 MG 00:00: 23:59 mg total) st enteric 00 :00 by mouth coated nightly tablet for 90 doses. rosuvastati 2020- No 10mg QD Take 1 Tg ston n (Crestor) 610 09-22 tablet (10 M ethodi 10 mg 00:00: 00:00 mg total) st tablet 00 :00 by mouth daily. valACYclovi 2019- Yes Recurrent 500mg Q.5D Take 1 Taylor r (Valtrex) 608 herpes tablet Meth ashish 500 MG 00:00: simplex ([address] tablet 00 total) by mouth 2 (two) times a day. Take for 3 days prn outbreaks losartan 2020- No TAKE 1 [place] (COZAAR) 5 08-26 TABLET(100 Meth ashish 100 MG 00:00: 00:00 MG) BY st tablet 00 :00 MOUTH DAILY losartan 2020- No TAKE 1 [place] (COZAAR) 3 05-21 TABLET(100 Meth ashish 100 MG 00:00: 00:00 MG) BY st tablet 00 :00 MOUTH DAILY meloxicam Yes TAKE 1 [place] (MOBIC) 15 1-30 TABLET BY Meth ashish mg tablet 00:00: MOUTH st 00 DAILY WITH FOOD NEEDED meloxicam 2019- No Take one Tg ston (MOBIC) 15 1-30 01-30 tablet by Met hodi mg tablet 00:00: 00:[address] 00 :00 daily as needed with food. losartan 2018-05 2020- No 100mg QD Take 1 [place] (COZAAR) 2-17 03-09 tablet Methodi 100 MG 00:00: 00:00 ([address] tablet 00 :00 total) by mouth daily. 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 Ordered Immunization Filled Immunization Date Status Commen ts Source Name Name FLUZONE HIGH-DOSE PF 2020-03-09 Completed [place] 00:00:00 [employer] Pneumococcal 2020-03-09 Completed [place] Polysaccharide 00:00:00 [employer] Zoster Vaccine 2018-10-21 Completed [place] Recombinant 00:00:00 [employer] Pneumococcal 2018-08-18 Completed [place] Conjugate 13-Valent 00:00:00 Metho dist Zoster Vaccine 2018-08-18 Completed [place] Recombinant 00:00:00 [employer] Tdap 2018-08-18 Completed [place] 00:00:00 [employer] Vital Signs Vital Name Observation Time Observation Value Comments Source Systolic blood 2020-04-19 08:06:00 133 mm[Hg] Renee n [employer] pressure Diastolic blood 2020-04-19 08:06:00 90 mm[Hg] Cara on [employer] pressure Heart rate 2020-04-19 08:06:00 63 /min [place] [facility] Body temperature 2020-04-19 08:06:00 36.72 Catherine Nicko pablo [facility] Body height 2020-04-19 08:06:00 172.7 cm [facility] Body weight 2020-04-19 08:06:00 91.627 [facility] 2020-04-19 08:06:00 30.71 kg/m2 [facility] Oxygen saturation in 2020-04-19 08:06:00 99 /min [facility] Arterial blood by Pulse oximetry Respiratory rate 2019-12-30 07:00:00 17 /min Nicko pablo [facility] Heart Rate 2019-03-26 21:19:00 [facility] [place] Respitory Rate 2019-03-26 21:19:00 Memori al Suleiman Systolic (mm Hg) 2019-03-26 21:19:00 Jabier rial [place] Diastolic (mm Hg) 2019-03-26 21:19:00 Mem orial [place] Systolic (mm Hg) 2019-03-26 21:16:00 Jabier rial [place] Diastolic (mm Hg) 2019-03-26 21:16:00 Mem orial Suleiman Heart Rate 2019-03-26 21:16:00 [facility] [place] Respitory Rate 2019-03-26 21:16:00 Memori al [place] Heart Rate 2019-03-26 20:50:00 [facility] S[place] Respitory Rate 2019-03-26 20:50:00 Madina Plummer Systolic (mm Hg) 2019-03-26 20:50:00 Jabier Bearden Diastolic (mm Hg) 2019-03-26 20:50:00 Kevin Bearden Height 2019-03-26 20:03:00 177.8 cm Danna Bearden Weight 2019-03-26 20:03:00 Danna Bearden BMI Calculated 2019-03-26 20:03:00 Madina Plummer Procedures Procedure Date / Time Performing Clinician Source Performed PROSTATE SPECIFIC ANTIGEN 2020-01-18 09:23:00 Dominguez Lei Walters URINALYSIS, AUTOMATED WITH 2020-01-18 09:23:00 Dominguez Lei MICROSCOPY Walters SEDIMENTATION RATE 2020-01-18 09:23:00 Dominguez Lei Walters C-REACTIVE PROTEIN 2020-01-18 09:23:00 Dominguez Lei Walters VITAMIN B12 LEVEL 2020-01-18 09:23:00 Dominguez Lei Walters THYROID STIMULATING 2020-01-18 09:23:00 Dominguez Lei n [employer] HORMONE Walters HEMOGLOBIN A1C 2020-01-18 09:23:00 Dominguez Lei Me thodist Walters BASIC METABOLIC PANEL 2020-01-18 09:23:00 Dominguez Lei [employer] Walters VITAMIN D 25 HYDROXY LEVEL 2020-01-18 09:23:00 Dominguez Lei [employer] Walters CBC HEMOGRAM 2019-12-30 05:12:00 Alverto Mejia Me thodist ECG 12-LEAD 2019-12-30 04:52:23 Abby López Meth odist BASIC METABOLIC PANEL 2019-12-30 04:00:00 Alverto Mejia ton [employer] ESTIMATED GFR 2019-12-30 04:00:00 Abby López Meth odist ACTIVATED CLOTTING TIME 2019-12-29 13:38:00 Abby López [employer] ECG 12-LEAD 2019-12-29 13:15:47 Abby López Meth odist CV PCI STENT 2019-12-29 12:16:24 Abby López Meth odist ACTIVATED CLOTTING TIME 2019-12-29 11:43:00 Abby López [employer] ACTIVATED CLOTTING TIME 2019-12-29 11:41:00 Abby López [employer] ACTIVATED CLOTTING TIME 2019-12-29 11:24:00 Abby López [employer] ACTIVATED CLOTTING TIME 2019-12-29 11:22:00 Abby López [employer] ACTIVATED CLOTTING TIME 2019-12-29 11:16:00 Abby López [employer] ACTIVATED CLOTTING TIME 2019-12-29 11:13:00 Abby López [employer] ACTIVATED CLOTTING TIME 2019-12-29 10:42:00 Abby López [employer] ACTIVATED CLOTTING TIME 2019-12-29 10:40:00 Abby López [employer] ECG PRE/POST OP 2019-12-29 07:28:41 Abby López Meth odist COVID-19 QUALITATIVE PCR 2019-12-24 11:45:00 Abby López [employer] LIPID PANEL 2019-12-24 09:57:00 Abby López Meth odist AST (SGOT) 2019-12-24 09:57:00 Abby López Meth odist CBC WITH PLATELET AND 2019-12-24 07:02:00 Abby López n [employer] DIFFERENTIAL COMPREHENSIVE METABOLIC 2019-12-24 07:02:00 Abby López [employer] PANEL COPY(IES) SENT TO: 2019-12-24 07:02:00 Abby López M ethodist PARTIAL THROMBOPLASTIN 2019-12-24 07:02:00 Abby López on [employer] TIME (PTT) PROTHROMBIN TIME WITH INR 2019-12-24 07:02:00 Abby López COPY RECEIVED FROM: 2019-12-24 07:02:00 Abby López HSV 1 AND 2 SPECIFIC AB 2019-10-26 07:05:00 Dominguez Lei IGG Walters LIPID PANEL 2019-10-26 07:04:00 Dominguez Lei Me thodist Selena XR SACROILIAC JOINTS 3+ VW 2019-06-15 15:50:06 Dominguez Lei Ashtyn Walters Plan of Care Planned Activity Planned Date Details Comments Source Future Scheduled 2002 COLONOSCOPY SCREENING Ho comfort [facility] Test 00:00:00 [code = COLONOSCOPY SCREENING] Future Scheduled 1968 COVID-19 VACCINE (#1) Ho comfort [facility] Test 00:00:00 [code = COVID-19 VACCINE (#1)] Encounters Start End Encounter Admission Attending Care Care Encounter Source Date/Time Date/Time Type Type Clinicians Facility Department ID 2020-04-19 2020-04-19 Outpatient [facility] [id number] [place] 00:00:00 00:00:00 DOMINGUEZ 123 Metho di 2020-01-18 2020-01-18 Outpatient [facility] [id number] [place] 00:00:00 00:00:00 DOMINGUEZ 687 Metho di 2020-01-18 2020-01-18 Outpatient [facility] [id number] [place] 00:00:00 00:00:00 DOMINGUEZ 447 Metho di 2020-01-18 2020-01-18 [id number] [place] 00:00:00 00:00:00 ABBY 931 Method i 2019-12-29 2019-12-30 [id number] [place] 00:00:00 00:00:00 ABBY 864 Method i 2019-12-24 2019-12-24 [facility] [id number] [place] 00:00:00 00:00:00 ABBY 918 Method i 2019-12-14 2019-12-14 [facility] [id number] [place] 00:00:00 00:00:00 ABBY 839 Method i 2019-10-25 2019-10-25 [facility] [id number] [place] 00:00:00 00:00:00 DOMINGUEZ 981 Metho di 2019-05-06 2019-05-06 [facility] [id number] [place] 00:00:00 00:00:00 ABBY [address] 2019-03-26 2019-03-26 Outpatient Ahmet [facility] [id number] 13:29:00 23:59:00 Bryce Bush 2019-03-26 2019-03-26 Outpatient [facility] CAR [id number] [facility] 13:29:00 13:29:00 Results Test Description Test Time Test Comments Results Result Comments Source Basic metabolic panel 2020-01-19 16:54:00 Test Item Value Reference Range Interpretation Comme nts Glucose (test code = 93 mg/dL 65-99 Fasting 2345-7) reference inter ambrose BUN (test code = 12 mg/dL 7-25 3094-0) Creatinine (test code = 1.12 mg/dL 0.7-1.25 For patients >49 years of 2160-0) age, the refere nce limitfor Creati nine is approximately 1 3% higher for peopleident ified as -Patricia n. EGFR Non-Afr. Mauritian 68 > OR = 60 (test code = 2775) mL/min/1.73m2 EGFR 78 > OR = 60 (test code = 93876-4) mL/min/1.73m2 BUN/creatinine ratio NOT APPLICABLE 6- 22 (calc) (test code = 3097-3) Sodium (test code = 142 mmol/L 078-800 4745-2) Potassium (test code = 4.9 mmol/L 3.5-5.3 2823-3) Chloride (test code = 104 mmol/L 98-110 2075-0) CO2 (test code = 30 mmol/L 20-32 2028-9) Calcium (test code = 10.4 mg/dL 8.6-10.3 H 65292-4) RAC (test code = RAC) Performing Organization Information: Site ID: RGA Name: [facility] Address: [address] [place] [address] Director: Devyn Reynolds Lab Interpretation Abnormal (test code = 62580-2) Brandon ChamorroVitamin B12 [id number] 16:54:00 Test Item Value Reference Range Interpretation Comments Vitamin B12 (test code = 1184 pg/mL 200-1100 H 2132-9) RAC (test code = RAC) Performing Organization Information: Site ID: RGA Name: [facility] Address: [address] [place] [address] Director: Devyn Reynolds Lab Interpretation (test Abnormal code = 87772-2) [place] MethodistHemoglobin [id number] 16:54:00 Test Item Value Reference Range Interpretation Comments Hemoglobin A1C 5.2 <5.7 % of total For the pu rpose of (test code = Hgb screening for t he 4548-4) presence ofdiab etes: <5.7% Consistent with the absence of diabetes5.7-6.4 % Consistent with increased risk for diabetes (prediabetes)> or =6.5% Consiste nt with diabetes T his assay result is consistent with a decreased risko f diabetes. Curre ntly, no consensus ex ists regarding use ofhemoglobin A1 c for diagnosis of di abetes in children. According to [place] er[place] Diabetes Associ ation (ADA)guidelines , hemoglobin A1c <7.0% represents optimalcontrol in non- di abetic patients. Differentmetric s may apply to specif ic patient populat ions. Standards of Me dical Care in Diabetes(ADA). RAC (test code = Performing RAC) Organization Information: Site ID: RGA [facility]: [facility] Address: [address] [place] [phone] Director: Devyn Reynolds [place] MethodistProstate specific [id number] 16:54:00 Test Item Value Reference Range Interpretation Comments PSA (test 1.7 ng/mL < OR = 4.0 The total PSA v alue code = from this assay system 2857-1) is standardized against the WHO standar d. The test result latoya l be approximately 2 0% lower when compared t o the equimolar-stand ardized total PSA (Oliveira man Oanh). Lambert rison of serial PSA resu lts should be inter preted with this fact in mind. This test was p erformed using the [employer] ns chemiluminescen t method. Values obtained from different assay methods cannot be usedinterchange ably. PSA levels, reg ardless ofvalue, should not be interpreted as absoluteevidenc e of the presence or abs ence of disease. RAC (test Performing code = RAC) Organization Information: Site ID: RGA Name: [facility] Address: [address] [place] [phone] Director: Devyn Taylor MethodistThyroid stimulating [id number] 16:54:00 Test Item Value Reference Range Interpretation Comments TSH (test code = 1.12 0.40- 4.50 mIU/L 3016-3) RAC (test code = Performing Organization RAC) Information: Site ID: JIMI Name: [facility] Address: [address] [place] [phone] Director: Devyn HuangistC-reactive [id number] 16:54:00 Test Item Value Reference Range Interpretation Comments CRP (test code = 2.7 mg/L <8.0 1988-5) RAC (test code = Performing Organization RAC) Information: Site ID: JIMI Name: [facility] Address: [address] [place] [phone] Director: Devyn Taylor MethodistSedimentation [id number] 16:54:00 Test Item Value Reference Range Interpretation Comments Sedimentation rate 11 mm/h < OR = 20 (test code = 4537-7) RAC (test code = RAC) Performing Organization Information: Site ID: JIMI Name: [facility] Lab Address: [address] [place] [phone] Director: Devyn Taylor MethodistUrinalysis, automated with [id number] 16:54:00 Test Item Value Reference Range Interpretation Comments Color, UA (test code = YELLOW YELLOW 5778-6) Appearance (test code = CLOUDY CLEAR A 5767-9) Specific gravity, urine 1.021 1.001-1.035 (test code = 5811-5) pH, urine (test code = > OR = 8.5 5.0-8.0 A 5803-2) Glucose, urine (test NEGATIVE NEGATIVE code = 14642-8) Bilirubin, UA (test code NEGATIVE NEGATIVE = 5770-3) Ketones, UA (test code = NEGATIVE NEGATIVE 1334-8) Occult blood, urine NEGATIVE NEGATIVE (test code = 5794-3) Protein, UA (test code = NEGATIVE NEGATIVE 66183-9) Nitrite, UA (test code = NEGATIVE NEGATIVE 5802-4) Leukocyte esterase, UA NEGATIVE NEGATIVE (test code = 5799-2) WBC, UA (test code = NONE SEEN < OR = 5 /HPF 5821-4) RBC, UA (test code = NONE SEEN < OR = 2 /HPF 67370-6) Squamous epithelial NONE SEEN < OR = 5 /HPF cells, UA (test code = 68717-9) Bacteria, UA (test code NONE SEEN NONE SEEN /HPF = 5769-5) Hyaline casts, UA (test NONE SEEN NONE SEEN /LPF code = 5796-8) RAC (test code = RAC) Performing Organization Information: Site ID: RGA Name: [facility] Address: [address] [place] [phone] Director: Devyn Reynolds Lab Interpretation (test Abnormal code = 93590-5) [place] MethodistVitamin D 25 hydroxy [id number] 16:54:00 Test Item Value Reference Range Interpretation Comments Vitamin D, 59 ng/mL 30-100 Vitamin D Statu s 25-hydroxy 25-OH Yamileth min (test code = D: Deficiency: 1989-3) < 20 ng/mLInsufficie ncy: 20 - 29 ng/mLOptimal: > or = 30 ng/mL For 25-OH Vitamin D testi ng on patients on D2-supplementat ion and patients fo r whom quantitati on of D2 and D3 fractions is required, the QuestAssureD(TM )25- OH VIT D, (D2,D 3), LC/MS/MS is recommended: or jeaneth code 01721 (patients >2yrs).See Note 1 Note 1 For additional information, pl ease refer to http://educatio n.Qu estDiagnostics. com/ faq/ODD055 (Thi s link is being provided for informational/e duca tional purposes only.) RAC (test code Performing = RAC) Organization Information: Site ID: RGA Name: [facility] Address: [address] [place] [phone] Director: Devyn Reynolds [place] MethodistCat lab [id number] 09:10:54PROCEDURE DETAILS Attending: Dr. Abby López MD Interventional Fellow: Alverto Mejia MD EQUIPMENT/ANTICOAGULATION: Bilateral femoral CFA7Fr RIGHT; 6 Fr LEFT WARP COILER; 4 Fr LEFT common femoral vein AL.75 SH; XB3.5 Guide Catheter Andrea Blue coronary wire Anticoagulation: Heparin with ACT >250 sec prior to procedure The RCA was engaged with the AL .75 SH Guide Catheter. The LMT was engaged with the XB 3.5 Guide Catheter. Bilateral angiography was performed. We then introduced Filder XT coronary wire over the Corsair microcatheter to the RCA. The BUTTON CUTTER lesions in the proximal and mid RCA werecrossed by the Fielder XT wire. Wire freely moved to the PDA. Wire was exchanged over the Corsair catheter to a SionBlue long wire. Lesions in the prox-distal RCA were serially dilated using 1.5, 2.0 and 2.5 compliant balloons at low pressures. We then stented mid-distal RCA using 3.0x38 mm Resolute [place] CIPRIANO. Then we stented proximal RCA using additional 3.0x38 mm Resolute Renard CIPRIANO.Angiography after the stent deployment revealed small proximal PDA dissection. The area of the dissection was additionally dilated using 2.0 balloon and stented with 2.5x26 mm Resolute [place] stent. Final angiography revealed evidence of small dissection in the mid PDA, however there was CHRISTINA 3 flow to the most distal branch and no evidence of extravasation or contrast staining. At this point decision was made to terminate the procedure. HEMOSTASIS: Proglide Closure Device bilaterally. PLAN: 1. ASA 81mg daily2. Ticagrelor 90mg BID . 3. Cardiac medical therapy and aggressive risk factor modification. Cardiac rehabilitation. 4. Transferred in stable condition ANESTHESIAUnder my supervision, 3 mg of versed and 50 mcg of fentanyl were administered intravenously for moderate sedation. Pulse oxymetry, heart rate and blood pressure were continuously measured by an independent trained observer present. I spent 120 minutesof face to face attendance with the patient during sedation.Brandon MethodistActivated clotting [id number] 15:02:56 Test Item Value Reference Range Interpretation Comments Activated clotting time 179 96- 152 sec H Oper ator Name: (test code = 5298) Mak Yepez ID: [id number] Lab Interpretation Abnormal (test code = 76580-0) Brandon MethodistECG 12 [id number] 09:16:33 Test Item Value Reference Range Interpretation Comments Ventricular rate (test 55 code = 253) Atrial rate (test code 55 = 255) NE interval (test code 180 = 266) QRSD interval (test 76 code = 260) QT interval (test code 458 = 264) QTC interval (test code 438 = 265) P axis 1 (test code = -21 267) QRS axis 1 (test code = -3 268) T wave axis (test code 1 = 270) EKG impression (test Sinus code = 273) bradycardia-Nonspecifi c T wave abnormality-Abnormal ECG-In automated comparison with ECG of 29-DEC-2019 13:15,-No significant change was found- Brandon ScientologyEstimated [id number] 06:44:24 Test Item Value Reference Range Interpretation Comments Estimated GFR (test 75 mL/min/1.73 m2 [facility] code = 5488) InterpretationG 1 >=90 Normal or highG2 60-89 Mildly rrxtpwrajB1b 45-59 Mildly to mode rately zvrdkilscU4j 30-44 Moderately to severely decreasedG4 15-29 Severely decre asedG5 <15 Kidn ey failureThe eGFR was calculated jordyn g the Chronic Kidney Disease Epidemiology Co llaboration (CKD-EPI) equat ion. Interpretation is based on recommendations of the National Kidney Foundation-Kidn ey Disease Outcomes Qualit y Initiative (NKF-KDOQI) pub lished in 2014. [facility] [id number] 05:53:12 Test Item Value Reference Range Interpretation Comments WBC (test code = 93062-0) 6.30 4.50- 11.00 k/uL RBC (test code = 11851-8) 4.16 m/uL 4.4-6 L HGB (test code = 718-7) 13.6 g/dL 14-18 L HCT (test code = 4544-3) 39.4 % 41-51 L MCV (test code = 787-2) 94.7 fL 82-100 MCH (test code = 785-6) 32.7 pg 27-34 MCHC (test code = 786-4) 34.5 g/dL 31-37 RDW - SD (test code = 10387-4) 45.0 fL 37-55 MPV (test code = 11755-8) 11.0 fL 8.8-13.2 Platelet count (test code = 170 150- 400 k/uL 49336-8) Nucleated RBC (test code = 0.00 /100 WBC 13987-7) Lab Interpretation (test code = Abnormal 77376-3) Brandon MethodistECG Pre/Post [id number] 21:47:58 Test Item Value Reference Range Interpretation Comments Ventricular rate (test 47 code = 253) Atrial rate (test code 47 = 255) NE interval (test code 190 = 266) QRSD interval (test 76 code = 260) QT interval (test code 472 = 264) QTC interval (test code 417 = 265) P axis 1 (test code = -27 267) QRS axis 1 (test code = -13 268) T wave axis (test code -24 = 270) EKG impression (test Sinus bradycardia with code = 273) sinus arrhythmia-Nonspecific T wave abnormality-Abnormal ECG-In automated comparison with ECG of 06-MAY-2019 11:35,-Sinus rhythm has replaced Ectopic atrial rhythm-Nonspecific T wave abnormality now evident in Lateral leads- [facility] MethodistComprehensive metabolic [id number] 04:03:00 Test Item Value Reference Interpretation Comments Range Glucose (test code 105 mg/dL 65-99 H Fasting = 2345-7) reference inter ambrose For someone wit hout known diabetes, a glucose valuebe tween 100 and 125 mg/ dL is consistent withprediabetes and should be confi rmed with afollow-up test. BUN (test code = 18 mg/dL 12-10 3094-0) Creatinine (test 1.16 mg/dL 0.7-1.25 For patient s >49 code = 2160-0) years of age, the reference limit for Creatinine is approximately 1 3% higher for peopleidentifie d as -Patricia n. EGFR Non-Afr. 65 > OR = 60 Mauritian (test code mL/min/1.73m2 = 2775) EGFR 75 > OR = 60 Mauritian (test code mL/min/1.73m2 = 72130-9) BUN/creatinine NOT APPLICABLE (calc) ratio (test code = 3097-3) Sodium (test code = 142 mmol/L 439-871 7406-2) Potassium (test 4.5 mmol/L 3.5-5.3 code = 2823-3) Chloride (test code 109 mmol/L 98-110 = 2075-0) CO2 (test code = 25 mmol/L 20-32 8-9) Calcium (test code 9.2 mg/dL 8.6-10.3 = 60494-0) Protein (test code 6.9 g/dL 6.1-8.1 = 2885-2) Albumin, S (test 4.2 g/dL 3.6-5.1 code = 1751-7) Globulin, total 2.7 1.9- 3.7 g/dL (test code = (calc) 96482-9) Albumin/globulin 1.6 1.0- 2.5 ratio (test code = (calc) 1759-0) Total bilirubin 1.4 mg/dL 0.2-1.2 H (test code = 1974-2) Alkaline 78 U/L 35-144 phosphatase (test code = 6768-6) AST (test code = 21 U/L 10-35 1920-8) ALT (test code = 15 U/L 9-46 1742-6) IMTIAZ (test code = FASTING:YESFASTIN IMTIAZ) G: YES RAC (test code = Performing RAC) Organization Information: Site ID: RGA Name: [facility] Address: [address] [place] [phone] Director: Devyn Reynolds Lab Interpretation Abnormal (test code = 92622-3) [facility] with platelet and [id number] 04:03:00 Test Item Value Reference Range Interpretation Comments WBC (test code = 4.9 3.8- 10.8 6690-2) Thousand/uL RBC (test code = 4.63 4.20- 5.80 789-8) Million/uL HGB (test code = 14.7 g/dL 13.2-17.1 718-7) HCT (test code = 43.9 % 38.5-50 4544-3) MCV (test code = 94.8 fL 80-100 787-2) MCH (test code = 31.7 pg 27-33 785-6) MCHC (test code = 33.5 g/dL 32-36 786-4) RDW (test code = 13.3 % 11-15 788-0) Platelet count (test 187 140- 400 code = 777-3) Thousand/uL MPV (test code = 11.6 fL 7.5-12.5 776-5) Neutrophils, absolute 2146 1,500 - 7,800 (test code = 751-8) cells/uL Lymphocytes, absolute 2190 850- 3,900 (test code = 731-0) cells/uL Monocytes, absolute 397 200- 950 cells/uL (test code = 742-7) Eosinophils, absolute 118 15- 500 cells/uL (test code = 711-2) Basophils, absolute 49 0- 200 cells/uL (test code = 704-7) Neutrophils (test 43.8 % code = 770-8) Lymphocytes (test 44.7 % code = 736-9) Monocytes (test code 8.1 % = 5905-5) Eosinophils (test 2.4 % code = 713-8) Basophils + RC (test 1.0 % code = 706-2) IMTIAZ (test code = IMTIAZ) FASTING:YESFASTING: YES RAC (test code = RAC) Performing Organization Information: Site ID: RGA Name: [facility] Address: [address] [place] [phone] Director: Devyn Taylor MethodistPT and [id number] 04:03:00 Test Item Value Reference Interpretation Comments Range PTT (test code 26 22- 34 sec This test welch s not been = 14986-9) validated for monitoringunfra ctionated heparin therapy . For testing thatis validated for this type o f therapy, please referto the Heparin Anti-Xa assay ( test code 13808). For add itional information, pl ease refer tohttp://educat ion.[employer]/fa q/NAE893(Thi s link is being provided for informational/e ducational purposes only.) INR (test code 1.0 Reference Ran ge = 6301-6) 0.9-1.1Moderate -intensity Warfarin Therap y 2.0-3.0Higher-i ntensity Warfarin Therap y 3.0-4.0 Prothrombin 10.4 9.0- 11.5 time (test code sec = 5902-2) IMTIAZ (test code FASTING:YESFASTI = IMTIAZ) NG: YES RAC (test code Performing = RAC) Organization Information: Site ID: JIMI Name: [facility] Address: [address] [place] [phone] Director: Devyn Marylou [facility] MethodistCOPY RECEIVED FROM:2019-12-25 04:03:00Copy received from:Comment: [address] [facility] [address] [place] [address] QUESTFASTING:YESFASTING: YESHouston MethodistProthrombin time with [id number] 03:57:00 Test Item Value Reference Range Interpretation Comments INR (test code = 1.0 Reference R jameel 6301-6) 0.9-1.1Moderate - intensity Warfarin Therap y 2.0-3.0Higher-i n tensity Warfari n Therapy 3.0-4.0 Prothrombin time 10.4 9.0- 11.5 sec (test code = 5902-2) IMTIAZ (test code = FASTING:YESFASTING: IMTIAZ) YES RAC (test code = Performing RAC) Organization Information: Site ID: JIMI Name: [facility] Address: [address] [place] [phone] Director: Devyn Ramridge [place] MethodistPartial thromboplastin time, [id number] 03:57:00 Test Item Value Reference Interpretation Comments Range PTT (test 26 22- 34 sec This test has not been code = [place] [address]-5) monitoringunfra ctionated heparin therapy . For testing thatis validate d for this type of therapy , please referto the Hep shasha Anti-Xa assay (test [place] e [address]). For additional info rmation, please refer tohttp://educat ion.[employer]/faq/ DEW740(This link is being p rovided for informational/e ducational purposes only.) IMTIAZ (test FASTING:YESFASTIN code = G: YES IMTIAZ) RAC (test Performing code = Organization RAC) Information: Site ID: RGA Name: [facility] Address: [address] [place] [phone] Director: Devyn Reynolds [place] MethodistCOPY(IES) SENT TO:2019-12-25 03:57:00Copies/mLComment: SHAILA ALBA [address]ARD[address] [facility] [address] [place] [address] QUESTFASTING:YESFASTING: Marisabel MethodistCOVID-19 qualitative PCR 2019-12-24 15:30:16 Test Item Value Reference Range Interpretation Comments Interpretation (test Negative results do code = 8538815) not preclude 2019-nCoV infection and should not be used as the sole basis for treatment or other patient management decisions. Negative results must be combined with clinical observations, patient history, and epidemiological information. COVID-19 qualitative Not-Detected Not-Detected PCR result (test code = 82897-9) COVID-19 qualitative See link below for C ase Number: PCR (test code = PDF Lab Report [id number]) [place] MethodistLipid [id number] 11:12:18 Test Item Value Reference Interpretation Comments Range Cholesterol (test 131 mg/dL <200 code = 2093-3) Triglycerides (test 137 mg/dL <150 code = 2571-8) HDL cholesterol 47 mg/dL >40 (test code = 2085-9) LDL cholesterol 75 mg/dL <100 Result obtai dea by direct (test code = 2089-1) LDL zuly surement Lipid panel SeeBelow Total Cholester ol (mg/dL) interpretation (test < 200 code = 15287-7) Desirable 200-239 Borderline -high >=240 Hi gh Triglyceri cipriano (mg/dL) <150 No rmal 150-199 Borderline-high 200-499 High >=500 Very high HDL Choles terol (mg/dL) <40 Low (male) < 40 Low (female) L DL Cholesterol (mg /dL) <100 Optimal 1 00-129 Near or above o ptimal 130-159 Borderline-high 160-189 High >=190 Very high Risk Cat ergories that modify LDL goals.Risk Catergories LDL goal (mg/dL )CHD and CHD risk equiva lent <100 (10-year risk >20%)Multiple ( 2+) risk factors < 130 (10-year risk = <20%)0-1 risk factors <160 (<10-ye ar risk) Defining levels of lipids in metabolic syndromeTriglyc erides > =150 mg/dLHDL Choles terol Men <40 mg/dL Women <40 mg/dL Non-HDL cholest sena is a second target f or therapy in personswith high triglycerides ( >=200 mg/dL) Brandon MethodistAST (SGOT)2019-12-24 11:12:18 Test Item Value Reference Range Interpretation Comments AST (test code = 1920-8) 24 U/L 10-50 Brandon ChamorroHSV 1 and 2 specific Ab [id number] 10:12:00 Test Item Value Reference Interpretation Comments Range HSV 1 IgG (test 45.20 index H code = 5206-8) HSV 2 IgG (test >23.00 index H code = 5209-2) Index Interpretation ---- - <0.9 0 Negative 0.90-1.09 Equivocal >1.09 Positive This a ssay utilizes recombinant typ e-specific antigensto diff erentiate HSV-1 from HSV- 2 infections. Apositive resul t cannot distinguish bet ween recent andpast infecti on. If recent HSV infection i s suspectedbut th e results are negative or equ ivocal, the assayshould be repeated in 4-6 weeks. The performancechar acteristics of the assay welch ve not been establishedfor pediatric populations, immunocompromis ed patients,or yaneth josee screening. IMTIAZ (test code = FASTING:YESFAS IMTIAZ) TING: YES RAC (test code = Performing RAC) Organization Information: Site ID: IG Name: [facility] Address: [address] [place] [address] Director: Dr. Devyn Reynolds Lab Abnormal Interpretation (test code = 59623-0) Brandon Chamorro
[2020-05-26] MEDS ORDERED: Ringers Lactate 1,000 ML IV ONE (09:02)
[2020-05-26] MEDS ORDERED: propofoL 200 MG/20 ML VIAL IV ONE (09:22)
[2020-05-26] MEDS ORDERED: FENTANYL CITR 100 MCG/2 ML ONE (09:22)
[2020-05-26] MEDS ORDERED: MIDAZOLAM HCL 2 MG/2 ML INJ ONE (09:22)
[2020-05-26] MEDS ORDERED: dexAMETHasone 10 MG/ML VIAL ONE (09:22)
[2020-05-26] MEDS ORDERED: ROCURONIUM 50 MG/5 ML VIAL IV ONE (09:23)
[2020-05-26] MEDS ORDERED: LIDOCAINE 2% MPF 5 ML VIAL ONE (09:23)
[2020-05-26] MEDS ORDERED: EPINEPHRINE/PF 1 MG/ML AMP ONE (10:09)
[2020-05-26] MEDS ORDERED: OXYMETAZOLINE HCL 0.05% 15ML NAS ONE (10:09)
[2020-05-26] MEDS ORDERED: NS 0.9% VIAL 10 ML ONE (10:34)
--- NOTE | 2020-05-26 10:42 | P.BOP ---
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
[2020-05-26] MEDS ORDERED: GLYCOPYRROLATE 0.2 MG/ML SYR ONE (10:43)
[2020-05-26] MEDS ORDERED: NEOSTIGMINE 1 MG/ML -5 ML ONE (10:43)
[2020-05-26 10:53] VITALS: O2SAT 100
[2020-05-26] MEDS ORDERED: ONDANSETRON 4 MG/2 ML VIAL ONE (11:31)
--- NOTE | 2020-05-26 11:47 | OP ---
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 Postoperative Diagnosis: Dysphonia, left vocal cord lesion of uncertain behavior. Procedure: Direct microlaryngoscopy with telescope and biopsy of left true vocal fold. Operative Findings: Red, somewhat lobulated-appearing mass on the phonating edge of the left anterior vocal fold with a similar, with very tiny similarly appearing lesion on the mid right vocal cord. Description Of Procedure: The patient was brought to the operating room. He was placed under general anesthesia via oral endotracheal tube. A shoulder roll was placed. The neck was extended and supported. A rubber tooth guard was placed. The [facility] laryngoscope was fitted with a 15-degree telescope and used to perform a direct laryngoscopy. After visualization of the glottis, the laryngoscope was placed in suspension and was adjusted to allow visualization of the anterior portion of the vocal cord. The vocal cords bilaterally were noted to have mild hypervascularity. The left anterior vocal fold has a moderate, red, lobulated-appearing mass on the phonating surface, occupying about 20% of the length of the vocal cord. There was a very tiny, almost pinpoint, similar- appearing mass on the right vocal fold. Photo-documentation of these lesions was obtained. A suction was used to carefully the suction secretions and explore the attachment of the lesion. A laryngeal injection needle is used to inject under the mucosa just lateral to the lesion in order to elevate the lesion from the underlying surface. The suction is then used to retract the lesion medially while the up-cutting laryngeal scissors were used to remove the mass. The lesion was removed as a single specimen and sent to Pathology for permanent section. Bleeding at the site was controlled with direct pressure using an epinephrine-soaked pledget. After several minutes, this was removed and photo-documentation of the postsurgical status was obtained. Decision was made to avoid manipulation of the right vocal fold lesion due to its very small size, uncertain clinical significance, and to avoid formation of a glottic web. The patient will be monitored with regard to voice quality after healing and consideration may need to be made for monitoring of this right lesion. The procedure was concluded as the laryngoscope was carefully released from suspension and removed. During removal, the oropharynx, posterior pharynx, vallecula, and epiglottis were all evaluated. There was a pre-existing laceration on the left lateral pharyngeal wall tonsillar fossa region from his initial intubation. There were no other suspicious or concerning lesions in the upper aerodigestive tract. The patient was returned to Anesthesia for awakening and extubation in the operating room, which proceeded without difficulty. Complications: None. Estimated Blood Loss: Minimal. Disposition: The patient will be discharged home today on complete voice rest for 3 days and then quiet minimal voice use for an additional 7 days. He can resume his blood thinners later today. WILMA/ANANTH Voice ID: [id number] Report ID: [id number] ANTHONY
[2020-05-26 11:54] VITALS: BP 125/79; TEMP 97
[2020-05-26] MEDS ORDERED: ACETAMINOPHEN 500 MG TAB ONE (12:33)
== END 2020-05-26 12:50 | disposition home or self-care (01) ==
LOC: OR 08:31
PROVIDERS: ATTEND Otolaryngology
PROC: 0CBV8ZZ Excision of Left Vocal Cord, Via Natural or Artificial Opening Endoscopic (ICD-10-PCS; principal; 2020-05-26 09:45)
DX: J38.1 Polyp of vocal cord and larynx (principal); R49.0 Dysphonia; Z20.822 Contact with and (suspected) exposure to COVID-19; I10 Essential (primary) hypertension; Z95.5 Presence of coronary angioplasty implant and graft
CPT/HCPCS: 88305; 31541; U0002; J2704; J0171; J2250; J3010; J1100; J2710; J7120; J2405